=== PATIENT | female | born 1950 | race Caucasian/White ===

== ENCOUNTER 2017-07-30 16:55 | Inpatient (IN) | payer OTHER ==
[~2017-07-30] VITALS: Ht 175.3 cm; Wt 63.0 kg
[~2017-07-30 16:55] MED LIST: ADV25050 INHALATION; ALBU2.5V36 NEB; ALBU8.5H3 INH; ALPR0.5T PO; LEVO500T72 PO; MORP15TA92 PO; PRED20TA PO; [UNRECOGNIZED DRUG - CODE] PO
[2017-07-30 18:59] VITALS: PULSE 77
[2017-07-30 20:07] VITALS: BP 101/64; RESP 18
[2017-07-30 20:15] VITALS: PULSE 84
[2017-07-30 22:50] VITALS: Ht 175.3 cm; Wt 63.0 kg
[2017-07-30] MEDS: SOD CHLORIDE 0.9% 1,000 ML IV SCH (22:55)
[2017-07-30] MEDS ORDERED: ONDANSETRON 4 MG INJ IV PRN (23:00)
[2017-07-30] MEDS ORDERED: NACL 0.9% 3 ML SYG IV SCH (23:00)
[2017-07-30] MEDS ORDERED: ACETAMINOPHEN 325 MG TAB PO PRN (23:00)
[2017-07-30 23:42] LABS: CREATINE KINASE 65 IU/L (23-200)
[2017-07-31] VITALS (10 sets, daily range): BP systolic 94–120; BP diastolic 52–66; PULSE 76–86; RESP 17–20
[2017-07-31 00:10] LABS: TROPONIN-I < 0.012 ng/ml (0.00-0.12)
[2017-07-31] MEDS ORDERED: ALPRAZOLAM 0.5 MG TAB PO SCH (02:00)
[2017-07-31] MEDS ORDERED: ALPRAZOLAM 0.25 MG TAB PO SCH ×3 (02:10→09:00)
[2017-07-31] MEDS: morphine (ER) 15 MG TAB PO SCH ×3 (02:18→12:57)
[2017-07-31] MEDS ORDERED: ALBUTEROL 0.5% (NEB) 2.5 MG/0.5 ML AMP NEB PRN (02:30)
[2017-07-31] MEDS ORDERED: KETOROLAC 30 MG INJ IV ONE (03:40)
--- NOTE | 2017-07-31 03:52 | HP ---
Date/Time of Note Date/Time of Note DATE: 07/31/17 TIME: 03:43 Assessment/Plan VTE Prophylaxis VTE Prophylaxis Intervention: SCD's Lines/Catheters Urinary Cath still in place: No Assessment/Plan Chief Complaint/Hosp Course This is a 66-year-old female being admitted to the telemetry floor for #1 syncope: Patient apparently fell to the floor and does not recall the event. A CT of the brain was not ordered at the transferring facility. Will order stat CT of the head. Will check a carotid Doppler ultrasound. Will check orthostatic vital signs. Will keep patient on fall precautions. This possibly could be secondary also to the underlying urinary tract infection and the pain she was experiencing from it. Also could be secondary to dehydration. She did receive a fluid resuscitation in the transfer facility. Will continue IV fluid hydration with normal saline. Her chest x-ray and EKG were within normal values. Consider neurology/cardiology consultation. Check repeat labs in the a.m. #2 headache: Again we will check a CT of the head without contrast. I am not entirely convinced that this is a true headache as patient apparently was sleeping comfortably right before I walked into the room and then started going into a panic holding her head. #3 urinary tract infection: Patient was found to have positive nitrites and leuk esterase at the transfer facility. Will continue Levaquin p.o. #4 COPD: We will continue patient's home inhalers #5 chronic pain syndrome: Need to confirm patient's home pain medication as she has multiple doses of MS Contin on her med rec will need to confirm the correct one and resume it. #6 DVT GI prolapses: SCDs, no GI prophylaxis indicated Further treatment strategy will be implemented as per the clinical course Problems: HPI/ROS Admit Date/Time Admit Date/Time Jul 30, 2017 at 18:20 Hx of Present Illness Chief complaint: Multiple complaints This is a 56-year-old female who was transferred from [facility] secondary to syncope and abdominal pain. Patient originally presented to the hospital complaining of having abdominal pain 4 days. Patient was also having nausea and vomiting. She also is complaining of dysuria. She also stated that she fell in her kitchen and blacked out and she does not recall why she fell. I examined the patient at [facility] she originally was sleeping comfortably however when I further into the room and awoken the patient interviewed her she all of a sudden started complaining of severe headache. As per the patient's nurse, the patient had been complaining of various symptoms at various times through the night and was requesting Xanax and her pain medications. Allergies: Sulfa Medications: See MATEO LR Const: As per HPI Eyes : No pain discharge or redness or change in visual acuity ENT: No pain, sore throat, congestion, congestion, dysphagia or discharge Respiratory: No shortness of breath, cough, sputum, wheezing, or pleuritic pain Cardiovascular: No chest pain, palpitation, PND, or edema GI : no change in appetite, abdominal pain, nausea, vomiting, diarrhea, constipation, or change in the color his stool Genitourinary: As per HPI Musculoskeletal: No joint pain, back pain, neck pain, restricted range of motion in neck or joints Skin: No rash, bruising or hives Neuro: As per HPI Endocrine: No polyuria, polydipsia, temperature intolerance Psych: No hallucination, depression, anxiety or suicidal ideation PMH/Family/Social Past Medical History COPD, cyclic vomiting syndrome, 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 HEENT: Atraumatic, normocephalic. The pupils are equal, round and reactive. Extraocular motor are intact Neck: Supple with full range of motion. No rigidity or meningismus Chest: Nontender Lungs: Clear to auscultation bilaterally no crackles rales or wheezing Heart: Normal S1-S2, Regular rhythm and rate. No murmur, S3, or S4 Abdomen: Soft , nontender, nondistended , bowel sounds are present. No guarding no rebound tenderness , No masses or organomegaly. No costovertebral temporal angle mass Extremities: Normal to inspection, no edema no cyanosis Neurologic: Normal mental status, speech normal, cranial nerves II through XII are intact, motor and sensory are intact, no focal weakness Additional Comments EKG: normal sinus rhythm at 80bpm, possible right atrial enlargement chest xray: no acute process, hyperinflation consistent with chronic obstructive lung disease ct abdomen pelvis with iv contrast: no acute intraabominal pathology. cbc: wbc: 7, hgb 13.3/hct 41, plts: 304 trop: negative cmp: wn;, except for mild elevation in alk phos of 129 ua: positive nitrite, leuk estrase Medications Medications Current Medications Sodium Chloride (NS) 1,000 ml @ 80 mls/hr [id number] IV Last administered on 22:55; Admin Dose 80 MLS/HR; Start 07/30/17 at 22:55 Ondansetron HCl (Zofran Inj) 4 mg Q6H PRN IV NAUSEA AND/OR VOMITING; Start at 23:00 Acetaminophen (Tylenol Tab) 650 mg Q6H PRN PO PAIN LEVEL 1-3 OR FEVER Last administered on 07/31/17 03:37; Admin Dose 650 MG; Start 07/30/17 at 23:00 Morphine Sulfate (Ms Contin (Er)) 30 mg TID PO Last administered on 07/31/17 02:18; Admin Dose 30 MG; Start 07/31/17 at 02:10 Alprazolam (Xanax) 0.5 mg BID PO Last administered on 07/31/17 02:17; Admin Dose 0.5 MG; Start 07/31/17 at 02:10 Amitriptyline HCl (Elavil) 50 mg HS PO ; Start 07/31/17 at 21:00 Levofloxacin (Levaquin) 500 mg DAILY@06 PO ; Start 07/31/17 at 06:00 Salmeterol Xinafoate/ Fluticasone (Advair 250/50 Diskus) 1 inh BID INH ; Start 07/31/17 at 09:00 JAZMIN RENEE Jul 31, 2017 03:52
[2017-07-31] MEDS ORDERED: morphine 2 MG INJ IV ONE (04:17)
[2017-07-31] MEDS ORDERED: LEVOFLOXACIN 500 MG TAB PO SCH (06:00)
[2017-07-31] MEDS: ALBUTEROL HFA 8 GM INHALER INH SCH ×4 (06:30→17:13)
--- NOTE | 2017-07-31 08:54 | RADRPT ---
PROCEDURE: CT Brain without contrast. CLINICAL INDICATION: Headache, syncope. TECHNIQUE: A CT of the brain was performed on multidetector high-resolution CT scanner utilizing a xial sections from the skull base through the vertex without contrast. The scan was reviewed in sof t tissue brain and high frequency resolution bone algorithm windows. Images were reviewed on a high -resolution PACS workstation. One or more the following does reduction techniques were utilized: Aut omated exposure control, adjustment of the mA/ or kV according to patient's size, or use of iterativ e reconstruction technique. The exam CTDI = 44.26 mGy and the DLP = 720.23 mGy-cm. DICOM images are available. COMPARISON: None available. FINDINGS: The ventricles and sulci are mildly prominent indicative of volume loss. There is no intracranial h emorrhage, mass effect or midline shift. No abnormal intra-axial or extra-axial fluid collections a re seen. The jacques/white matter differentiation is preserved. Low-lying bilateral cerebellar tonsils are noted with partial effacement of foramen magnum CSF space. There are mild scattered foci of hypoattenuation in the white matter, which are nonspecific in etiol ogy but likely reflect chronic small vessel ischemic changes. There are mild intracranial vascular calcifications consistent with atherosclerosis. The visualized paranasal sinuses are essentially merlene ar. IMPRESSION: 1. No acute intracranial hemorrhage, transcortical infarction or mass effect. 2. Mild intracranial atherosclerosis and chronic small vessel ischemic changes. 3. Low-lying bilateral cerebellar tonsils are noted with partial effacement of foramen magnum CSF space. 4. Mild generalized cerebral volume loss. RPTAT: UU .Kenrick Camarena MD, MD Date Time Electronically viewed and signed by .Kenrick Camarena MD, MD on 07/31/2017 08:53 .N/
[2017-07-31] MEDS ORDERED: morphine (ER) 15 MG TAB PO SCH (09:00)
[2017-07-31] MEDS ORDERED: SALMETEROL/FLUTICASONE 250/50 INHA INH SCH (09:00)
[2017-07-31 09:34] LABS: BASOPHILS % 0.6 % (0.0-2.0); EOSINOPHILS # 0.3 10^3/ul (0.0-0.5); EOSINOPHILS % 4.6 % (0.0-7.0); HEMATOCRIT 34.2 % (37.0-47.0); HEMOGLOBIN 11.3 g/dl (12.0-16.0); LYMPHOCYTES % 37.6 % (15.0-51.0); MEAN CORPUSCULAR HEMOGLOBIN 30.1 pg (29.0-33.0); MEAN CORPUSCULAR VOLUME 91.2 fl (82.0-101.0); MONOCYTE # 0.6 10^3/ul (0.3-0.9); MONOCYTES % 10.3 % (0.0-11.0); NEUTROPHIL # 2.5 10^3/ul (1.6-7.5); NEUTROPHILS % 46.7 % (39.0-77.0); PLATELET COUNT 239 10^3/UL (140-415); RED BLOOD COUNT 3.75 10^6/ul (4.20-5.40); RED CELL DISTRIBUTION WIDTH 11.9 % (11.5-14.5); WHITE BLOOD COUNT 5.4 10^3/ul (4.8-10.8)
[2017-07-31 09:50] LABS: CREATINE KINASE 73 IU/L (23-200)
[2017-07-31 10:00] LABS: ALBUMIN 3.2 g/dl (3.3-4.9); ALBUMIN/GLOBULIN RATIO 1.1; BILIRUBIN,INDIRECT 0.2 mg/dl (0-1.1); BILIRUBIN,TOTAL 0.2 mg/dl (0.2-1.3); CALCIUM 8.8 mg/dl (8.4-10.2); CREATININE 0.71 mg/dl (0.44-1.00); MAGNESIUM 1.8 mg/dl (1.7-2.5); POTASSIUM 4.3 mmol/L (3.5-5.1); TOTAL PROTEIN 6.1 g/dl (6.1-8.1)
[2017-07-31 10:02] LABS: CK-MB 3.23 ng/ml (0.0-2.4)
[2017-07-31 10:05] LABS: TROPONIN-I < 0.012 ng/ml (0.00-0.12)
[2017-07-31] MEDS: SOD CHLORIDE 0.9% 1,000 ML IV SCH (11:25)
--- NOTE | 2017-07-31 13:12 | RADRPT ---
PROCEDURE: Carotid ultrasound CLINICAL INDICATION: Syncope, carotid bruits TECHNIQUE: Mehta scale, color doppler, spectral doppler ultrasound of the bilateral carotid and monserrat tebral arteries. This study indirectly references the measurement of the distal ICA diameter as the denominator for s tenosis measurement. Validated velocity measurements with angiographic measurements, velocity criter ia are extrapolated from diameter data as defined by: *Cartoid artery stenosis: mehta-scale and Doppl er US diagnosis. Society of Radiologists in Ultrasound Consensus Conference. Radiology 2003; 229: 34 0-346. SRU Consensus Conference Criteria for the Diagnosis of Carotid Artery Stenosis* Degree of Stenosis, % ICA PSV, cm/sec Plaque Estimate, % ICA/CCA PSV Ratio Normal <125 None <2.0 <50 <125 <50 <2.0 50 69 125-230 >50 2.0-4.0 >70 but less than near occlusion >230 >50 <4.0 Near occlusion High, low, or undetectable Visible Variable Total occlusion Undetectable Visible, no detectable lumen Not applicable COMPARISON: No prior studies are available for comparison. FINDINGS: Location Right CCA64 - 74 cm/sec Prox ICA 43 cm/sec Mid ICA55 cm/sec Dist ICA72 cm/sec ECA44 cm/sec ICA/CCA1.0 Left CCA65 - 76 cm/sec Prox ICA 63 cm/sec Mid ICA92 cm/sec Dist OIX059 cm/sec ECA61 cm/sec ICA/CCA1.6 Plaque burden: Small plaques present involving both common carotid arteries and the proximal right i nternal carotid artery without evidence of flow acceleration to suggest a hemodynamically significan t stenosis. Antegrade flow is seen within the vertebral arteries bilaterally. IMPRESSION: No evidence of a hemodynamically significant carotid stenosis. RPTAT: AADD .Keyon Richards MD, Date Time Electronically viewed and signed by .Keyon Richards MD, on 07/31/2017 13:12 .B/
[2017-07-31] MEDS ORDERED: SULF1TAB31 PO (14:49)
--- NOTE | 2017-07-31 14:50 | PDOCDIS ---
Discharge Instructions DIAGNOSIS Discharge Diagnosis Syncope CONDITION Patient Condition: Fair HOME CARE INSTRUCTIONS: Diet Instructions: RegularSpecial Diet: regular FOLLOW UP/APPOINTMENTS Follow-up Plan Return to the hospital if you have any concerning symptoms [facility] be available at [facility] [place] MD Jul 31, 2017 14:50
--- NOTE | 2017-07-31 14:56 | DS ---
Date/Time of Note Date/Time of Note DATE: 07/31/17 TIME: 14:55 Discharge Summary Admission/Discharge Info Admit Date/Time Jul 30, 2017 at 18:20 Discharge Date/Time Discharge Diagnosis Syncope Patient Condition: Fair Hospital Course Patient monitored on telemetry without arrythmia. Troponins were negative. EKG unermarkable. Labs unremarkable. Symptoms resolved. Syncope likely orthostatic vs vasovagal event, unlikely this was a cardiac event. She was prescribed an antibiotic for UTI and discharged to follow up with her PMD. Home Meds Active Scripts Albuterol Sulfate* (Albuterol Sulfate* Neb) 0.5%-0.5 Ml Neb, 2.5 MG NEB Q4H Y for WHEEZING AND SOB for 15 Days, #30 VIAL Prov:FERCHO HUANG NP 03/28/16 Albuterol Sulfate* (Proair HFA*) 8.5 Gm Hfa.aer.ad, 2 PUFF INH Q4 for SHORTNESS OF BREATH for 30 Days, #1 INHALER Prov:FERCHO HUANG NP 03/28/16 Salmeterol Xinaf/Fluticasone* (Advair*) 250-50 Diskus Inhaler, 1 INH INHALATION BID for 30 Days, #1 INHALER Prov:FERCHO HUANG NP 03/28/16 Prednisone* (Prednisone*) 20 Mg Tab, 40 MG PO DAILY, #2 TAB Prednisone 40 MG by mouth daily 2 days, then. Prednisone 20 MG by mouth daily 2 days, then. Prednisone 10 MG by mouth daily 2 days, then. Prednisone 5 MG by mouth daily 2 days. Prov:FERCHO HUANG NP 03/28/16 Levofloxacin* (Levaquin*) 500 Mg Tablet, 500 MG PO DAILY@06 for 5 Days, TAB Prov:FERCHO HUANG NP 03/28/16 Reported Medications Amitriptyline Hcl* (Elavil*) 50 Mg Tab, 50 MG PO HS, #30 TAB 03/22/16 Morphine Sulfate* (Ms Contin*) 15 Mg Tablet.sa, 60 MG PO TID, TAB 03/22/16 Morphine Sulfate* (Ms Contin*) 15 Mg Tablet.sa, 30 MG PO TID, TAB.SA 03/22/16 Alprazolam* (Xanax*) 0.5 Mg Tab, 0.5 MG PO BID, TAB 03/22/16 Morphine Sulfate* (Ms Contin*) 15 Mg Tablet.sa, 30 MG PO TID, TAB.SA 03/22/16 Follow-up Plan Return to the hospital if you have any concerning symptoms Antibiotic will be available at [facility] in [place] Primary Care Provider Adrianna Hooker Pending Labs Laboratory Tests Test 07/30/17 23:13 07/31/17 09:15 Creatine Kinase 65IU/L (23-200) 73IU/L (23-200) Creatine Kinase Index 3.8 4.4 Creatinine Kinase MB (Mass) 2.50ng/ml (0.0-2.4) 3.23ng/ml (0.0-2.4) Troponin I < 0.012ng/ml (0.00-0.12) < 0.012ng/ml (0.00-0.12) White Blood Count 5.410^3/ul (4.8-10.8) Red Blood Count 3.7510^6/ul (4.20-5.40) Hemoglobin 11.3g/dl (12.0-16.0) Hematocrit 34.2% (37.0-47.0) Mean Corpuscular Volume 91.2fl (82.0-101.0) Mean Corpuscular Hemoglobin 30.1pg (29.0-33.0) Mean Corpuscular Hemoglobin Concent 33.0g/dl (32.0-37.0) Red Cell Distribution Width 11.9% (11.5-14.5) Platelet Count 16831^3/UL (140-415) Mean Platelet Volume 9.0fl (7.4-10.4) Neutrophils % 46.7% (39.0-77.0) Lymphocytes % 37.6% (15.0-51.0) Monocytes % 10.3% (0.0-11.0) Eosinophils % 4.6% (0.0-7.0) Basophils % 0.6% (0.0-2.0) Nucleated Red Blood Cells % 0.0/100WBC (0.0-0.0) Neutrophils # 2.510^3/ul (1.6-7.5) Lymphocytes # 2.010^3/ul (0.8-2.9) Monocytes # 0.610^3/ul (0.3-0.9) Eosinophils # 0.310^3/ul (0.0-0.5) Basophils # 0.010^3/ul (0.0-0.1) Nucleated Red Blood Cells # 0.010^3/ul (0.0-0.0) Sodium Level 141mmol/L (135-144) Potassium Level 4.3mmol/L (3.5-5.1) Chloride Level 107mmol/L (97-110) Carbon Dioxide Level 29mmol/L (21-31) Anion Gap 9 (8-16) Blood Urea Nitrogen 10mg/dl (7-20) Creatinine 0.71mg/dl (0.44-1.00) Glucose Level 83mg/dl (70-220) Hemoglobin A1c 5.4% (0-5.9) Calcium Level 8.8mg/dl (8.4-10.2) Magnesium Level 1.8mg/dl (1.7-2.5) Total Bilirubin 0.2mg/dl (0.2-1.3) Direct Bilirubin 0.00mg/dl (0.00-0.20) Indirect Bilirubin 0.2mg/dl (0-1.1) Aspartate Amino Transf (AST/SGOT) 21IU/L (15-46) Alanine Aminotransferase (ALT/SGPT) 29IU/L (13-69) Alkaline Phosphatase 92IU/L (42-121) Total Protein 6.1g/dl (6.1-8.1) Albumin 3.2g/dl (3.3-4.9) Globulin 2.90g/dl (1.3-3.2) Albumin/Globulin Ratio 1.10 Triglycerides Level 72mg/dl (0-149) Cholesterol Level 98mg/dl (100-200) LDL Cholesterol, Calculated 36mg/dl HDL Cholesterol 48mg/dl (35-98) Cholesterol/HDL Ratio 2.0RATIO Thyroid Stimulating Hormone (TSH) 1.000MIU/L (0.465-4.680) ELIAZAR CALERO MD Jul 31, 2017 14:56
--- NOTE | 2017-07-31 15:54 | RADRPT ---
Echocardiogram Report Patient Name: CHAUNCEY MARTINEZ Gender: Female Date: 1950 Study Date: 31-Jul-2017 Adjunct Physics Instructor: Belinda Monteiro [facility] Location: [id number] Ref. Physician: JAZMIN RENEE Quality: Good Procedures: Transthoracic echocardiogram with complete 2D, M-Mode, and doppler examination. Indications: Syncope. 2D/M Mode Doppler Measurement Value Normal Ranges Measurement Value Normal Ranges LVIDd 2D 3.6 3.5 - 5.6 cm AV Peak Aayush 1.7 m/sec LVIDs 2D 2.0 2.1 - 4.1 cm AV Peak PG 10.9 mmHg LVPWd 2D 0.9 0.6 - 1.1 cm LVOT Peak Aayush 1.0 m/sec IVSd 2D 0.9 0.6 - 1.1 cm LVOT Peak PG 3.8 mmHg AoR Diam 2D 2.9 2.0 - 3.7 cm MV E Peak Aayush 0.8 m/sec EDV 2D 54.0 cm3 MV A Peak Aayush 1.0 m/sec ESV 2D 7.6 cm3 MV E/A 0.9 LA Dimen 2D 2.6 2.3 - 4.0 cm MV Decel Time 178 msec MV Decel Weber 5 MV E/A 0.9 TR Peak Aayush 3.7 m/sec TR Peak PG 54.6 mmHg RVSP 63.0 mmHg Findings Left Ventricle: Normal left ventricular systolic function. Normal left ventricular cavity size. Normal left ventricular wall thickness. Ejection fraction is visually estimated at 65 %. Tissue Doppler/Mitral Doppler indices are consistent with impaired relaxation (Stage I diastolic dysfunction). Right Ventricle: Normal right ventricular size. Normal right ventricular systolic function. Left Atrium: The left atrium is normal in size. Right Atrium: The right atrium is normal in size. Mitral Valve: Normal appearance of the mitral valve. Mild mitral annular calcification. Trace mitral regurgitation. Aortic Valve: No significant aortic stenosis or insufficiency. Aortic cusps appear mildly calcified. Tricuspid Valve: Normal appearance of the tricuspid valve. Estimated peak PA systolic pressure 63 mmHg. There is mild tricuspid regurgitation. Pulmonic Valve: Normal pulmonic valve appearance. Pericardium: Normal pericardium with no significant pericardial effusion. Aorta: Normal aortic root. IVC: Dilated IVC with respiratory collapse consistent with elevated right atrial pressure. Conclusions 1.Normal left ventricular systolic function. Normal left ventricular cavity size. Normal left ventricular wall thickness. Ejection fraction is visually estimated at 65 %. Tissue Doppler/Mitral Doppler indices are consistent with impaired relaxation (Stage I diastolic dysfunction). 2.Normal right ventricular size. Normal right ventricular systolic function. 3.The left atrium is normal in size. 4.The right atrium is normal in size. 5.Normal appearance of the tricuspid valve. Estimated peak PA systolic pressure 63 mmHg. There is mild tricuspid regurgitation. 6.No significant valvular stenosis or regurgitation seen of remaining visualized valves. 7.Normal pericardium with no significant pericardial effusion. Electronically Signed By: Roberto Olivas 31-Jul-2017 15:53:20 -0800 Patient Name: CHAUNCEY MARTINEZ Study Date: 31-Jul-2017 [id number]
[2017-07-31] MEDS ORDERED: NITR-58 PO (18:00)
[2017-07-31] MEDS ORDERED: AMITRIPTYLINE 50 MG TAB PO SCH (21:00)
== END 2017-07-31 18:19 | disposition home or self-care (01) | DRG 312 ==
LOC: MS4 18:20
PROVIDERS: ADMIT Family Medicine; ATTEND Family Medicine
DX: R55 Syncope and collapse (principal); N39.0 Urinary tract infection, site not specified; R51 Headache; J44.9 Chronic obstructive pulmonary disease, unspecified; G89.4 Chronic pain syndrome; Z72.0 Tobacco use
CPT/HCPCS: 70450; 80053; 80061; 82550; 82553; 83036; 83735; 84443; 84484; 85025; 93306; 93880; J1885; J2270; J7030